=== PATIENT | female | born 1995 | race African-American/Black ===

== ENCOUNTER 2017-02-01 19:57 | Emergency (ER) | payer OTHER ==
[2017-02-01 20:35] LABS: #Eosinphils 0.2 thou/uL (0.0-0.7); #Lymphocytes 1.4 thou/uL (1.20-3.40); #Monocytes 0.7 thou/uL (0.11-0.59); #Neutrophils 7.1 thou/uL (1.40-6.50); %Basophils 0.1 % (0.0-1.0); %Eosinophils 1.8 % (0.0-10.0); %Lymphocytes 14.8 % (21.0-51.0); %Monocytes 7.5 % (0.0-10.0); Hematocrit 34.6 % (36.0-47.0); Mean Platelet Volume 7.2 fL (7.4-10.4); Red Blood Cell (RBC) Count 3.56 mill/uL (4.20-5.40); White Blood Cell (WBC) Count 9.3 thou/uL (4.8-10.8)
[2017-02-01 20:36] LABS: Bilirubin Negative (Negative); Blood, Urine Negative (Negative); Glucose, Urine (Dipstick) 100 mg/dL (Negative); Ketone, Urine Trace mg/dL (Negative); Nitrite Negative (Negative); Protein, Urine (Dipstick) Negative (Neg-Trace)
[2017-02-01 20:57] LABS: ALT (SGPT) 17 U/L (8-55); AST (SGOT) 17 U/L (5-34); Alkaline Phosphatase 108 U/L (40-150); Anion Gap 11 mmol/L (10-20); BUN (Urea Nitrogen) 9 mg/dL (7.0-18.7); Bilirubin, Total 0.2 mg/dL (0.2-1.2); Calc. Creatinine Clearance 0 mL/min (70-130); Carbon Dioxide 24 mmol/L (22-29); Chloride 106 mmol/L (98-107); Estimated GFR-MDRD Greater than 90; Globulin 3.2 g/dL (2.4-3.5); Protein, Total 6.6 g/dL (6.0-8.3)
== END 2017-02-01 22:44 | disposition home or self-care (01) ==
LOC: ERS 19:57
DX: O99.89 Other specified diseases and conditions complicating pregnancy, childbirth and the puerperium (principal); R06.02 Shortness of breath; R07.89 Other chest pain; O99.513 Diseases of the respiratory system complicating pregnancy, third trimester; J45.909 Unspecified asthma, uncomplicated; O99.283 Endocrine, nutritional and metabolic diseases complicating pregnancy, third trimester; E05.90 Thyrotoxicosis, unspecified without thyrotoxic crisis or storm; O99.343 Other mental disorders complicating pregnancy, third trimester; F41.9 Anxiety disorder, unspecified; F32.9 Major depressive disorder, single episode, unspecified; Z3A.34 34 weeks gestation of pregnancy
CPT/HCPCS: 36415; 80053; 81003; 85025; 85379; 93005

== ENCOUNTER 2019-05-25 13:51 | Outpatient (CLI) | payer MEDICAID, OTHER ==
--- NOTE | 2019-05-25 14:46 | ULT ---
Obstetric sonogram HISTORY: Second trimester gestation. evaluation. FINDINGS: Single intrauterine gestation in breech presentation. Grade 1 placenta is anterior. Amnioti c fluid is within normal limits. No gross intracranial abnormalities evident. spine and kidneys are intact as visualized. Four-chamber heart motion at 153 bpm. Three-vessel cord shows a normal insertion. Cervix is closed and 3.2 cm. Measurements are as follows: Biparietal diameter 20 weeks 5 days Head circumference 20 weeks 6 days Abdominal circumference 20 weeks 4 days Femur length 20 weeks 0 days [place] 18 percentile. Estimated date of delivery based on today's sonogram 10/08/2019. IMPRESSION : Single intrauterine gestation. Estimated gestational age 20 weeks 4 days. No abnormalities are demons trated.
== END 2019-05-25 13:52 | disposition home or self-care (01) ==
LOC: BICULT 13:51
PROVIDERS: ATTEND Family Medicine
DX: Z34.82 Encounter for supervision of other normal pregnancy, second trimester (principal); Z3A.20 20 weeks gestation of pregnancy
CPT/HCPCS: 76805

== ENCOUNTER 2019-08-02 20:25 | Day surgery (SDC) | payer OTHER ==
[2019-08-02] MEDS ORDERED: hydrALAZINE 20 MG/ML VIAL SLOW IVP PRN (20:40)
[2019-08-02 20:51] VITALS: BP 115/72; TEMP 98.4; BMI 31.9
--- NOTE | 2019-08-02 21:10 | PDOC.LDHP ---
Labor and Delivery H&P Chief complaint: contractions HPI: 23 y/o at 30w5d, patient of Dr. Mancera, presents with ctx 0800 q 10 mins. Denies VB, LOF, UTI sx or decreased FM. ROS neg for HEENT, cv, pulm, gi, gu, neuro, psych, skin, musculoskeletal or constitutional symptoms other than mentioned above. OB History Details: 1 prior term Current complications: none Past Medical History: Asthma Current medications: pre- vitamins Previous surgical history: none Allergies/Adverse Reactions: Allergies Allergy/AdvReac Type Severity Reaction Status Date / Time marijuana Allergy Severe Anaphylaxis Verified 08/02/19 20:39 Social history: none - Physical Exam Vital signs reviewed and normal: yes General: NAD, resting Lungs: nonlabored breathing Abdomen: gravid Extremeties: no edema FHT: category 1 (130s, mod variability, + accels, no decels) [place] contractions every: none - Vaginal Exam cm dilated: 0 Effacement: 0% Station: -3 - Assessment 23 y/o at 30w5d with no e/o PTL. status reassuring with reactive NST. - Plan -: D/c home with precautions. Advised to keep all appointments.
== END 2019-08-02 22:15 | disposition home or self-care (01) ==
LOC: L&D/OP 20:25
PROVIDERS: ATTEND Family Medicine
DX: O47.03 False labor before 37 completed weeks of gestation, third trimester (principal); O99.513 Diseases of the respiratory system complicating pregnancy, third trimester; J45.909 Unspecified asthma, uncomplicated; Z3A.30 30 weeks gestation of pregnancy; Z88.8 Allergy status to other drugs, medicaments and biological substances
CPT/HCPCS: 99283

== ENCOUNTER 2019-09-28 08:05 | Outpatient (CLI) | payer OTHER ==
[2019-09-28 17:45] LABS: SARS-CoV-2 MS2 Positive; SARS-CoV-2 N Gene Negative; SARS-CoV-2 S Gene Negative; SARS-CoV-2 by NAA Not Detected (NotDetected); SARS-CoV-2 orf1ab Negative
== END 2019-09-28 08:06 | disposition home or self-care (01) ==
LOC: LABSCS 08:05
PROVIDERS: ATTEND Family Medicine
DX: Z01.812 Encounter for preprocedural laboratory examination (principal); Z11.59 Encounter for screening for other viral diseases
CPT/HCPCS: 87635; U0003

== ENCOUNTER → 2019-10-03 16:15 | Inpatient (IN) | payer OTHER ==
[2019-10-02 07:19] VITALS: BMI 34.9
[2019-10-02 08:02] LABS: Hemoglobin 12.4 g/dL (12.0-16.0); Mean Corpuscular HGB CONC 33.6 g/dL (32.0-36.0); Mean Corpuscular Hemoglobin 30.2 pg (27.0-31.0); Mean Corpuscular Volume 89.8 fL (78.0-98.0); Mean Platelet Volume 8.4 fL (7.4-10.4); Platelet Count 188 thou/uL (130-400); Red Blood Cell (RBC) Count 4.09 mill/uL (4.20-5.40); White Blood Cell (WBC) Count 6.7 thou/uL (4.8-10.8)
[2019-10-02 08:45] LABS: HBSAg Index 0.18 S/CO (0-0.99); Hep B Surf Ag Non-Reactive S/CO (NonReactive); Syphilis Antibody Nonreactive (Nonreactive); Syphilis Antibody Index 0.06 S/CO (<1.00 Non-Reactive)
[2019-10-02] MEDS: Ibuprofen 800 MG TAB PO SCH ×2 (15:16→22:33)
[2019-10-02] MEDS: Ferrous Sulfate 325 MG TAB PO SCH (18:03)
--- NOTE | 2019-10-02 20:24 | DN ---
DATE OF PROCEDURE: 10/02/2019 PREOPERATIVE DIAGNOSIS: 39-week . POSTOPERATIVE DIAGNOSIS: 39-week , delivered. PROCEDURE PERFORMED: Spontaneous vaginal delivery. ANESTHESIA: Epidural. DESCRIPTION OF PROCEDURE: I was present for the delivery of this 23-year-old black female, G2, P1, now P2 of a viable female infant over a second-degree midline perineal laceration on 10/02/2019. delivered in OA presentation over a second-degree midline perineal laceration. No nuchal cord was encountered. The remainder of the delivered uneventfully and without difficulties. Cord was clamped x2. Vigorous female infant was placed on the maternal chest. Cord blood was obtained. The placenta was delivered spontaneously and intact shortly thereafter. Laceration was repaired with a running suture of 2-0 Vicryl in the usual fashion. No other lacerations were encountered. ESTIMATED BLOOD LOSS: 150 mL. Mother and baby were taken to Recovery in stable condition. Job ID: [id number]
[2019-10-02] MEDS: Docusate Calcium (SURFAK) 240 MG CAP PO SCH (22:33)
[2019-10-03 05:34] VITALS: TEMP 98.4
[2019-10-03] MEDS: Ibuprofen 800 MG TAB PO SCH ×2 (06:13→13:36)
[2019-10-03] MEDS: Docusate Calcium (SURFAK) 240 MG CAP PO SCH (08:44)
[2019-10-03] MEDS: Ferrous Sulfate 325 MG TAB PO SCH ×2 (08:44→13:48)
[2019-10-03 11:46] VITALS: BP 111/62
[~2019-10-03 16:15] MED LIST: Acetaminophen 325 MG TAB PO PRN; Adacel (T-DAP) 0.5 ML SYRINGE IM ONE; Benzocaine-Menthol 82.5 ML CAN TOP PRN; Bisacodyl 10 MG SUPP PR PRN; Bupivacaine/Epinephrine 0.25% 30 ML VIAL ONE; Butorphanol Tartrate 1 MG/ML VIAL SLOW IVP PRN; Carboprost 250 MCG/ML AMP IM PRN; Communication Order-Pharmacy FS SCH; Diphenoxylate HCl/Atropine Tablet PO PRN; EPHEDRINE 25 MG/5 ML SYRINGE SLOW IVP PRN; Fentanyl 4 mcg/Bup 0.1% Cadd 100 ML ONE; Fentanyl 4 mcg/Bupivacaine 0.1% Cassette 100 ML EPIDURAL SCH; HYDROcodone/Acetaminophen 5/325 mg Tablet PO PRN; Ibuprofen 800 MG TAB PO PRN; Lactated Ringer's 1,000 ML IV SCH; Lactated Ringer's 500 ML IV PRN; Lanolin Ointment 7 GM TUBE TOP PRN; Lidocaine 1% (PF) 30 ML VIAL SC PRN; Milk Of Magnesia 30 ML UDCUP PO PRN; Misoprostol 200 MCG TAB PR PRN; NS / Oxytocin 40 units/1000ml 1,000 ML IV PRN; NS / Oxytocin 40 units/1000ml 1,000 ML IV SCH; NS w/ Oxytocin 10 units 500 ML IV SCH; NS w/ Oxytocin 10 units 500 ML ONE; Naloxone HCl 0.4 mg/ml Vial IVP PRN; Ondansetron PF 4 MG/2 ML Vial IVP PRN; Prenatal Vitamin 1 TAB PO SCH; Promethazine HCl 25 MG/ML VIAL IM PRN; diphenhydrAMINE 25 MG CAP PO PRN; diphenhydrAMINE 50 MG/ML VIAL IVP PRN; hydrALAZINE 20 MG/ML VIAL SLOW IVP PRN
== END | disposition home or self-care (01) | DRG 807 ==
LOC: L&D 10-02 06:55 → 3SW 10-02 16:24
PROVIDERS: ADMIT Family Medicine; ATTEND Family Medicine
PROC: 10E0XZZ Delivery of Products of Conception, External Approach (ICD-10-PCS; principal; 2019-10-02)
PROC: 0KQM0ZZ Repair Perineum Muscle, Open Approach (ICD-10-PCS; 2019-10-02)
DX: O70.1 Second degree perineal laceration during delivery (principal); Z37.0 Single live birth; Z3A.39 39 weeks gestation of pregnancy
CPT/HCPCS: 36415; 51702; 85027; 86780; 86850; 86900; 86901; 87340; J2590